=== PATIENT | male | born 1965 | race Caucasian/White ===

== ENCOUNTER 2024-07-22 06:20 | Day surgery (SDC) | payer OTHER, SELFPAY ==
[2024-07-16 08:44] LABS: Hematocrit 39.9 % (39.0-52.0); Hemoglobin 13.5 g/dL (13.0-18.0); Mean Corp Hgb Conc. 33.8 g/dL (33.0-37.0); Mean Corpuscular Hgb 29.5 pg (27.0-31.0); Mean Corpuscular Volume 87.1 fL (80.0-94.0); Mean Platelet Volume 10.9 fL (7.4-10.4); Platelet Count 230 10^3/uL (130-400); Red Blood Cell Count 4.58 10^6/uL (4.70-6.10); Red Cell Dist. Width 13.1 % (11.5-14.5); White Blood Cell Count 4.8 10^3/uL (4.8-10.8)
[2024-07-16 09:10] LABS: Blood Urea Nitrogen 16 mg/dl (9-20); Calcium 8.7 mg/dl (8.4-10.2); Carbon Dioxide 27 mmol/L (22-30); Chloride 103 mmol/L (98-107); Glucose 96 mg/dl (70-99); Potassium 4.3 mmol/L (3.5-5.1); Sodium 141 mmol/L (135-145); eGFR > 60.00
[2024-07-16 14:06] VITALS: BMI 28.1
[2024-07-22] VITALS (10 sets, daily range): BP systolic 124–171; BP diastolic 79–98; BMI 28.1
[2024-07-22] MEDS: CYSVIEW KIT 100 MG INTRAVES (07:12)
[2024-07-22] MEDS: NORMOSOL-R/PLASMALYTE-A 1000 IV (07:22)
[2024-07-22] MEDS: SYRINGE NON-PUMP 50 MG IRRIG ×2 (08:44→08:45)
[2024-07-22] MEDS: SYRINGE NON-PUMP 50 ML IRRIG ×2 (08:44→08:45)
[2024-07-22] MEDS: DETROL LA 4 MG PO (09:20)
== END 2024-07-22 11:04 | disposition home or self-care (01) ==
LOC: SDS 06:20
PROVIDERS: ATTENDING PHYSICIAN Specialist; FAMILY PHYSICIAN Physician Assistant Medical
DX: C67.9 Malignant neoplasm of bladder, unspecified (principal); I45.10 Unspecified right bundle-branch block
CPT/HCPCS: 52235; 88307; 36415; 80048; 85027; 93005; A9589; J9201